=== PATIENT | female | born 1940 | race Caucasian/White ===

== ENCOUNTER 2017-04-26 09:55 | Emergency (ER) | payer MEDICARE ==
[2017-04-26] MEDS ORDERED: ISOVUE-370 76% 100ML VIAL (Q9967) As Ordered (12:41)
[2017-04-26 12:43] LABS: ANION GAP 5 MEQ/L (8-16); BLOOD UREA NITROGEN 12 MG/DL (7-18); CALCIUM LEVEL 8.7 MG/DL (8.8-10.2); CARBON DIOXIDE LEVEL 33 MEQ/L (21-32); CHLORIDE LEVEL 106 MEQ/L (98-107); CREATININE FOR GFR 0.63 MG/DL (0.55-1.02); GLOMERULAR FILTRATION RATE > 60.0 (>39); GLUCOSE, FASTING 85 MG/DL (70-100); POTASSIUM SERUM 3.6 MEQ/L (3.5-5.1); SODIUM LEVEL 144 MEQ/L (136-145)
== END 2017-04-26 14:22 | disposition home or self-care (01) ==
LOC: M ED 09:55
DX: J90 Pleural effusion, not elsewhere classified (principal); M47.894 Other spondylosis, thoracic region; I10 Essential (primary) hypertension; J44.9 Chronic obstructive pulmonary disease, unspecified; K21.9 Gastro-esophageal reflux disease without esophagitis; F03.90 Unspecified dementia, unspecified severity, without behavioral disturbance, psychotic disturbance, mood disturbance, and anxiety; E78.5 Hyperlipidemia, unspecified; Z85.3 Personal history of malignant neoplasm of breast; I48.91 Unspecified atrial fibrillation; Z79.899 Other long term (current) drug therapy; Z79.01 Long term (current) use of anticoagulants; F17.210 Nicotine dependence, cigarettes, uncomplicated
CPT/HCPCS: Q9967

== ENCOUNTER → 2017-11-16 | Outpatient (CLI) | payer MEDICARE | LOC: M RAD 12:36 | DX: I70.213 Atherosclerosis of native arteries of extremities with intermittent claudication, bilateral legs (principal); I87.393 Chronic venous hypertension (idiopathic) with other complications of bilateral lower extremity | CPT/HCPCS: 93970 ==

== ENCOUNTER → 2020-08-08 | Outpatient (CLI) | payer MEDICARE, MEDICAID ==
[~2020-08-08] MED LIST: ANAS1TAB2; CIAL2.5T PO; COMBAER6; ELIQ5TAB PO; IPRA6SP; IPRATROPIUM/; LOSA50TA88; METO1TAB32; NAMZ1CAP2; OMEP40CA97; VICO5TAB17 PO
--- NOTE | 2020-08-08 17:47 | RADONC ---
Radiation Oncology Hx/FUP Radiation Oncology Hx/FUP Date of Service: August 08, 2020 Pt Identifier Lilo Callahan is a 80 year old female seen for a followup visit today at the department of radiation oncology for a history of right breast cancer pT1bN0(sn)M0 ER/VT+ HER 2- Grade 1 s/p lumpectomy and adjuvant RT 48.6 Gy in 27 fractions to the right whole breast and an additional 12 Gy in 6 fractions to the tumor bed completed 11/09/09. She has been continued on an AI. She has since been diagnosed with dementia, resides in a senior care, and has not had oncologic follow up since 2016. She is seen at the request of the senior care physician Dr. Hamilton who has been prescribing her AI. Diagnosis/Treatment History Oncologic History As above Relevant data: Last known mammogram ([facility]) 08/08/14 Negative Interval History Lilo is pleasantly confused, doesn't know where she is or why. Does know her name, not the year. She is dancing on the the exam table. She denies pain in her chest, SOB, breast pain. Reports her appetite is good. Says she has energy to dance. Current Therapy AI Stage Stage IA right breast cancer pT1bN0(sn)M0 ER/VT+ HER2- Grade 1 Social History: Former smoker 20 pack year Does not drink Allergies / Meds Allergies: Coded Allergies: MS - No Known Drug Allergy (Verified Allergy, Unknown, 07/03/12) Home Meds Active Scripts Hydrocodone/Acetaminophen (Vicodin 5-300 mg Tablet) 1 Tab Tab, 1 TAB PO Q4HP PRN for PAIN MDD 6 for 3 Days, #18 TAB 0 Refills Prov:Yamile Barragan PA-C 04/26/17 Reported Medications [Ipratropium/] No Conflict Check 04/26/17 Ipratropium [place] (Ipratropium [place]) [address] [place]/15 Ml Naspr 04/26/17 Losartan Potassium (Losartan Potassium) 50 Mg Tab 04/26/17 Tadalafil (Cialis) 2.5 Mg Tab, 2.5 MG PO DAILY, TAB 04/26/17 Metoprolol Succinate (Metoprolol Succinate) 25 Mg Tab 04/26/17 Apixaban (Eliquis) 5 Mg Tab, 5 MG PO BID, TAB 04/26/17 Anastrozole (Anastrozole) 1 Mg Tab 04/26/17 Omeprazole (Omeprazole) 40 Mg Cap 04/26/17 Memantine HCl/Donepezil HCl (Namzaric 28 mg-10 mg Capsule) 1 Cap Cap 04/26/17 Ipratropium/Albuterol Sulfate (Combivent Respimat 20-100 Mcg) 1 Aer Aer 04/26/17 Review of Systems Review of Systems General: Reports: ROS Unobtainable (Confusion) Physical Examination Vital Signs Wt 140 lbs T 97.2 P 84 RR 16 BP 140/60 O2 96% Pain 0 Fatigue 0 General Exam: Positive: Alert, Cooperative, No Acute Distress Eye Exam: Positive: PERRLA, EOMI Neck Exam: Positive: Supple; Negative: Lymphadenopathy Chest Exam: Positive: Clear to auscultation Heart Exam: Positive: Rate Normal Breast Exam: Positive: Symmetric Bilaterally, Skin Changes (Prior RT tattoos present. ); Negative: Lumps or Masses (Right breast exhibits mild hyperpigmentation of the skin as well as slightly higher lay than the left. There are no palpable breast lesions or masses BL. There is mild grade 1 fibrosis palpable in the breast tissue on the right. There are no axillary lesions or masses BL. ) Abdomen Exam: Positive: Soft; Negative: Tenderness Extremity Exam: Negative: Edema Skin Exam: Positive: Nl turgor and temperature Neuro Exam: Positive: Normal Gait, Normal Speech, Cranial Nerves 3-12 NL Psych Exam: Positive: Mental status NL Diagnostic and Laboratory Diagnostic Review Radiologic images, relevant labs and pathology reports were personally reviewed and discussed with Ms. Callahan. Assessment and Plan Impression Assessment Ms. Callahan is a 80 year old female with a history of right breast cancer pT1bN0(sn)M0 ER/VT+ HER 2- Grade 1 s/p lumpectomy and adjuvant RT 48.6 Gy in 27 fractions to the right whole breast and an additional 12 Gy in 6 fractions to the tumor bed completed 11/09/09. She has been continued on an AI. She has since been diagnosed with dementia, resides in a senior care, and has not had oncologic follow up since 2016. She is seen at the request of the senior care physician Dr. Hamilton who has been prescribing her AI. She is now >10 years removed from locoregional therapy for an early stage breast cancer without evidence of recurrence or late complications of therapy on exam today. She has reached the 9th decade of her life, and I note she has a number of other chronic health problems. Given these factors, I doubt the utility of continuing her on an AI for secondary prevention. Most guidelines call for discontinuation of adjuvant endocrine therapy beyond 10 years post-treatment, although it is unclear to me based on our paper records if she has been on the AI the whole time. Last mention of an AI in any of her radiation oncology assessments was at her follow up with Dr. Mccain on 01/10/15. In any event given the low likelihood of additional benefit at this time, I would suggest the AI be discontinued. I also do not think that ongoing mammographic assessments would be of significant benefit to her given her other health conditions posing greater mortality risk than another early stage breast cancer. In fact per recent guidelines published in [employer] (Annmarie et al 2020), expert consensus suggests discontinuing screening in survivors age >75 who have life expectancy of <5 or 5-10 years. I think she would fit this description. Rather she could have an annual breast exam as part of a routine physical, this should suffice in her case. Performance Status ECOG 2 Plan Recommend discontinuation of Anastrozole Recommend against additional mammographic screening Suggest annual breast exam by PCP would suffice for surveillance in her case Follow up with me PRN Billing Statement Total time of [25] minutes was spent preparing for the visit [3], obtaining HPI [2], examining the patient [4], reviewing diagnostic tests [4], discussing management options [1], coordinating care [3], and writing this note [8]. ISABEL TOLLIVER MD August 08, 2020 17:47
== END ==
LOC: M ONCR 15:36
PROVIDERS: ATTEND General Practice
DX: C50.411 Malignant neoplasm of upper-outer quadrant of right female breast (principal)